=== PATIENT | female | born 1975 | race Caucasian/White ===

== ENCOUNTER 2016-05-16 17:47 | Emergency (ER) | payer MEDICAID ==
[~2016-05-16] VITALS: Ht 162.6 cm; Wt 45.0 kg
[~2016-05-16 17:47] MED LIST: HYDR2.5%T PR; SENN1TAB11 PO
[2016-05-16 17:50] VITALS: BP 127/64; PULSE 85; RESP 15; TEMP 98.1; O2SAT 98
[2016-05-16] MEDS ORDERED: OSEL75 PO (18:22)
--- NOTE | 2016-05-16 18:22 | PD ---
HPI Chief Complaint: Cold / Flu Symptoms Time Seen by Provider: 18:12 Travel History International Travel<30 days: No Contact w/Intl Traveler<30days: No Traveled to known affect area: No History of Present Illness HPI 41-year-old female presents to the emergency Department with sudden onset fever, chills, myalgias, sore throat, cough, generalized malaise. Patient has decreased appetite but no nausea vomiting or diarrhea. Patient's young daughter has the same symptoms since yesterday. Patient states a high temperature 100.5. She has no other specific complaints. She is allergic to Ceclor, Cipro, Lortab, penicillin, Percocet, and sulfa. PFSH Past Medical History ?: Not LMP: 04/25/2016 Social History Alcohol Use: Yes Tobacco Use: Yes Allergies-Medications Reported Meds & Prescriptions Reported Meds & Active Scripts Active Pat-Colace (Senna/Docusate Sodium) 1 Tab Tab 2 Tab PO HS 10 Days Anusol-Hc (Hydrocortisone) 2.5 % Cre 2.5 % [place] BID 10 Days Review of Systems Except as stated in HPI: all other systems reviewed are Neg General / Constitutional: Positive: Fever, Chills Eyes: No: Visual changes HENT: Positive: Headaches, Sore Throat, Rhinitis, Rhinorrhea, Congestion, No: Vertigo, Lightheadedness, Nosebleed, Neck Stiffness, Neck Pain, Ear Discharge, Earache Cardiovascular: No: Chest Pain or Discomfort Respiratory: Positive: Cough, No: Shortness of Breath Gastrointestinal: Positive: Loss of Appetite, No: Nausea, Vomiting, Diarrhea, Abdominal Pain Genitourinary: No: Dysuria Musculoskeletal: Positive: Myalgias, No: Pain Skin: No Rash Neurologic: No: Weakness Psychiatric: No: Depression Endocrine: No: Polydipsia Hematologic/Lymphatic: No: Easy Bruising Physical Exam Narrative GENERAL: Patient appears ill but not septic. SKIN: Warm and dry. Mild pallor. Normal turgor. HEAD: Atraumatic. Normocephalic. EYES: Pupils equal and round. No scleral icterus. No injection or drainage. ENT: No nasal bleeding or discharge. Mucous membranes pink and moist. Mild injection in the posterior pharynx otherwise unremarkable. TMs are clear bilaterally. NECK: Trachea midline. Nontender. CARDIOVASCULAR: Regular rate and rhythm. RESPIRATORY: No accessory muscle use. Clear to auscultation. Breath sounds equal bilaterally. GASTROINTESTINAL: Abdomen soft, non-tender, nondistended. Hepatic and splenic margins not palpable. MUSCULOSKELETAL: Extremities without clubbing, cyanosis, or edema. No obvious deformities. NEUROLOGICAL: Awake and alert. No obvious cranial nerve deficits. Motor grossly within normal limits. Five out of 5 muscle strength in the arms and legs. Normal speech. PSYCHIATRIC: Appropriate mood and affect; insight and judgment normal. Data Data Last Documented VS Vital Signs Date Time Temp Pulse Resp B/P Pulse Ox O2 Delivery O2 Flow Rate FiO2 05/16/16 17:50 98.1 85 15 127/64 98 MDM Medical Decision Making Medical Screen Exam Complete: Yes Emergency Medical Condition: Yes Differential Diagnosis Febrile illness. Myalgias. Viral illness. Influenza. Narrative Course Patient is medically stable at time of exam. I am empirically treating the patient for influenza with Tamiflu 75 mg twice a day for 5 days. Patient's is to continue ibuprofen and Tylenol rest as needed. Work note is given. Patient follow-up with primary care physician or return to emergency Department with worsening symptoms as necessary. Diagnosis Primary Impression: Influenza Patient Instructions: General Instructions, H1N1 Influenza (ED) Departure Forms: Work Release Enter return to work date: May 20, 2016 Additional Instructions: I am empirically treating the patient for influenza with Tamiflu 75 mg twice a day for 5 days. Patient's is to continue ibuprofen and Tylenol rest as needed. Work note is given. Patient follow-up with primary care physician or return to emergency Department with worsening symptoms as necessary. Med/Other Pt SpecificInfo: Prescription(s) given Disposition: 01 DISCHARGE HOME Condition: Stable Barry Dodson May 16, 2016 18:22
== END 2016-05-16 18:40 | disposition home or self-care (01) ==
LOC: NEPB 17:47
DX: J11.1 Influenza due to unidentified influenza virus with other respiratory manifestations (principal); Z72.0 Tobacco use
CPT/HCPCS: 99283

== ENCOUNTER 2017-01-20 20:19 | Observation (INO) | payer MEDICAID ==
[~2017-01-20 20:19] MED LIST changes: -HYDR2.5%T PR; +OSEL75 PO; -SENN1TAB11 PO
[2017-01-20 21:22] VITALS: BP 109/64; PULSE 96; RESP 16; TEMP 99.9; O2SAT 98
[2017-01-20 22:15] VITALS: PULSE 96
[2017-01-20] MEDS ORDERED: SODIUM CHLORIDE 0.9% FLUSH 10 ML FLUSH IV FLUSH PRN (23:45)
[2017-01-20] MEDS ORDERED: ONDANSETRON HCL 4 MG/2 ML VIAL IV PUSH PRN (23:45)
[2017-01-20] MEDS ORDERED: NITROGLYCERIN 0.4 MG SL 25 TABS/BTL SL PRN (23:45)
[2017-01-21] VITALS (9 sets, daily range): BP systolic 93–106; BP diastolic 49–56; PULSE 63–84; RESP 16–20; TEMP 96.5–98.8; O2SAT 98–99
[2017-01-21] MEDS: MORPHINE SULFATE 4 MG/ML INJ IV PUSH PRN ×2 (00:27→06:39)
[2017-01-21] MEDS ORDERED: ASPIRIN 325 MG TAB PO SCH (09:00)
[2017-01-21] MEDS ORDERED: SODIUM CHLORIDE 0.9% FLUSH 10 ML FLUSH IV FLUSH SCH (09:00)
--- NOTE | 2017-01-21 09:13 | HHI.HP ---
HPI Primary Care Physician Karthik Cueto D.O. Chief Complaint Dyspnea History of Present Illness 41-year-old female with history of anxiety and current smoker presents to emergency room for further evaluation of dyspnea and chest pain. Reports one week of respiratory illness accompanied with nonproductive cough, fever, and malaise. Upon awakening yesterday morning felt "as though I was punched in the chest." Proceeded to work, able to complete full shift. Reports history of costochondritis therefore was not overly concerned with chest discomfort. Described as sharp, stabbing pain. Location substernal. No radiation of pain. Duration constant. Precipitating factors relates to a respiratory illness. No known relieving factors. Movement and taking a deep breath makes pain worse. Endorses shallow breathing, because of pain associated with breathing. Initially went to [facility], states [employer] PROGRAM RESIDENT recommended [facility] transport to ED. Declined [facility] instead drove self to [place] [facility]. Continues to have chest pain and dyspnea. Review of Systems General: Fatigue,weakness, and fever x1 week, Current respiratory illness, nonproductive cough. No change in appetite. HEENT: Current CARVAJAL she related to not eating. Slight, intermittent nasal yellow drainage. CV: Continues to have chest pain as stated above. RESP: Continues to feel short of breath and reports swallow breathing due to pain with breating. Nonproductive cough x1 week. No wheeze, no hemoptysis, no history of asthma. GI: No nausea, vomiting, bowel changes, or diarrhea. : No dysuria, urgency, or frequency. EXT: No lower leg edema, no paraesthesias MS: Substernal and upper uptwister tender to touch. Pain made worse with movement. No change in ROM. NEURO: No LOC, motor/sensory deficits PSYCH: History of anxiety, stating anxiety controlled past 7 years. Reporting current anxiety over current situation and admission to hospital. Requesting low dose xanax. No depression or situational stress. SKIN: No rashes, no concerning lesions Past Family Social History Allergies: Coded Allergies: Sulfa (Sulfonamide Antibiotics) (Unverified Allergy, Severe, Confusion, ) acetaminophen (Unverified Allergy, Severe, Itching, 10/18/16) cefaclor (Unverified Allergy, Severe, Itching, 10/18/16) ciprofloxacin (Unverified Allergy, Severe, Itching, 10/18/16) codeine (Verified Allergy, Severe, 01/20/17) hydrocodone (Unverified Allergy, Severe, Itching, 10/18/16) oxycodone (Unverified Allergy, Severe, Itching, 10/18/16) penicillin G (Unverified Allergy, Severe, Anaphylaxis, 10/18/16) Past Medical History Anxiety Past Surgical History Tubal ligation, D&C, left wrist cyst removal Reported Medications Reported Meds & Active Scripts Active No Active Prescriptions or Reported Medications Active Ordered Medications Current Medications Medications (Trade) Dose Ordered Sig/Iraida Route Start Time Stop Time Status Last Admin (NS Flush) 2 ml BID IV FLUSH 01/21/17 09:00 01/21/17 08:46 (NS Flush) 2 ml UNSCH PRN IV FLUSH 01/20/17 23:45 (Morphine Inj) 2 mg Q4H PRN IV PUSH 01/20/17 23:45 01/21/17 06:39 (Zofran Inj) 4 mg Q6H PRN IV PUSH 01/20/17 23:45 (Nitrostat Sl) 0.4 mg Q5M PRN SL 01/20/17 23:45 (Aspirin) 325 mg DAILY PO 01/21/17 09:00 01/21/17 08:45 (Albuterol Neb) 2.5 mg Q6HR NEB NEB 01/21/17 10:00 UNV (Albuterol Neb) 2.5 mg Q2HR NEB PRN NEB 01/21/17 09:15 UNV (Toradol Inj) 30 mg ONCE ONCE IV PUSH 01/21/17 09:15 01/21/17 09:16 UNV (Xanax) 0.25 mg ONCE ONCE PO 01/21/17 09:15 01/21/17 09:16 UNV Family History Noncontributory for early onset cardiovascular disease. Social History No known diabetes, hypertension, or hyperlipidemia. Current smoker 1/2 pack/daily. Denies any alcohol or illegal drug use. Single Mother of 2-year-old daughter. Endorses active lifestyle. Past cardiac testing None Physical Exam Vital Signs Vital Signs Date Time Temp Pulse Resp B/P (MAP) Pulse Ox O2 Delivery O2 Flow Rate FiO2 01/21/17 08:05 98 21 01/21/17 06:43 99/54 (69) 01/21/17 05:06 99/54 (69) 01/21/17 04:48 98.2 79 16 93/54 (67) 98 01/21/17 04:00 66 01/21/17 00:36 98.8 80 19 101/56 (71) 99 01/21/17 00:00 84 01/20/17 22:15 96 01/20/17 21:22 99.9 96 16 109/64 (79) 98 Physical Exam GENERAL: Alert WN, WD, mild distress appears unable to find a comfortable position, attempting not to take deep breaths, pleasant, female HEAD: NC, AT EYES: Sclera clear, conjunctiva without injection, pupils equal and round ENT: Mucous membranes pink and moist, NECK: Supple, no masses, trachea midline CV: RRR, without murmur, rub, gallop, no JVD, S1-S2 no S3-S4. Guarding chest wall during palpation, tender with gentle touch of stethoscope. RESP: Lungs diminished throughout bilateral, difficult to auscultate due to not taking deep breathes. Symmetrical chest rise, nonlabored, able to speak in full sentences, taking shallow breathes due to apparent discomfort with breathing. No crackles, wheeze, or rhonchi. ABD: Soft, NT, ND, no masses, positive bowel tones, flat BACK: Tender to touch of stethoscope during auscultation EXT: Pulses +24, no dependent edema MS: Normal tone 4 extremities, no obvious deformities, full range of motion NEURO: CN II through CN XII grossly intact, motor strength 5/5 PSYCH: A+O 3, pleasant affect, appropriate speech,insight and judgment SKIN: Normal turgor, normal texture, no lesions, no rashes, brisk cap refill, even hair distribution Laboratory Laboratory Tests Test 01/20/17 20:57 Troponin I LESS THAN 0.02 Imaging Chest xray read and interpreted by Radiologist as no acute cardiopulmonary process. Normal examination. Course EKG Normal sinus rhythm, normal axis, no ST or T-segment changes Caprini VTE Risk Assessment Caprini VTE Risk Assessment: No/Low Risk (score <= 1) Caprini Risk Assessment Model Point Value = 1 Point Value = 2 Point Value = 3 Point Value = 5 Age 41-60 Minor surgery BMI > 25 kg/m2 Swollen legs Varicose veins or History of unexplained or recurrent spontaneous Oral contraceptives or hormone replacement Sepsis (< 1 month) Serious lung disease, including pneumonia (< 1 month) Abnormal pulmonary function Acute myocardial infarction Congestive heart failure (< 1 month) History of inflammatory bowel disease Medical patient at bed rest Age 61-74 Arthroscopic surgery Major open surgery (> 45 min) Laparoscopic surgery (> 45 min) Malignancy Confined to bed (> 72 hours) Immobilizing plaster cast Central venous access Age >= 75 History of VTE Family history of VTE Factor V Leiden Prothrombin [id number] Lupus anticoagulant Anticardiolipin antibodies Elevated serum homocysteine Heparin-induced thrombocytopenia Other congenital or acquired thrombophilia Stroke (< 1 month) Elective arthroplasty Hip, pelvis, or leg fracture Acute spinal cord injury (< 1 month) Prophylaxis Regimen Total Risk Factor Score Risk Level Prophylaxis Regimen 0-1 Low Early ambulation 2 Moderate Order ONE of the following: *Sequential Compression Device (SCD) *Heparin 5000 units SQ BID 3-4 Higher Order ONE of the following medications: *Heparin 5000 units SQ TID *Enoxaparin/Lovenox 40 mg SQ daily (WT < 150 kg, CrCl > 30 mL/min) *Enoxaparin/Lovenox 30 mg SQ daily (WT < 150 kg, CrCl > 10-29 mL/min) *Enoxaparin/Lovenox 30 mg SQ BID (WT < 150 kg, CrCl > 30 mL/min) AND/OR *Sequential Compression Device (SCD) 5 or more Highest Order ONE of the following medications: *Heparin 5000 units SQ TID (Preferred with Epidurals) *Enoxaparin/Lovenox 40 mg SQ daily (WT < 150 kg, CrCl > 30 mL/min) *Enoxaparin/Lovenox 30 mg SQ daily (WT < 150 kg, CrCl > 10-29 mL/min) *Enoxaparin/Lovenox 30 mg SQ BID (WT < 150 kg, CrCl > 30 mL/min) AND *Sequential Compression Device (SCD) Assessment and Plan Assessment and Plan #1 Atypical chest pain-admitted to chest pain center. Ruled out with 3 sets of EKGs and cardiac enzymes. Will be seen and evaluated by Dr. Miller Moser. Musculoskeletal chest wall discomfort due to current respiratory illness and frequency of coughing. Toradol 30 mg IV 1 dose. Will reassess after Toradol given. Further cardiac testing unlikely this is been discussed with patient. Patient agreeable to plan of care. #2 Bronchitis- albuterol RT treatments every 6 hours scheduled and every 2 when necessary, first dose now, discussed plan of care with RN. Discussed Toradol mechanism of action. Consider home going [facility] upon discharge. #3 Anxiety-Xanax 0.25mg po x1 dose. Reports tolerance to Xanax in the past. #4 Tobacco use-strongly encouraged and stressed the importance of tobacco cessation. Instructed her to quit smoking. Daniela Hanna Jan 21, 2017 09:13
[2017-01-21] MEDS ORDERED: KETOROLAC TROMETHAMINE 30 MG/ML (IVP) VIAL IV PUSH ONE (09:15)
[2017-01-21] MEDS ORDERED: ALPRAZolam 0.25 MG TAB PO ONE (09:15)
[2017-01-21] MEDS ORDERED: RESP: ALBUTEROL 2.5 MG/3 ML NEB (PRN) NEB (09:15)
[2017-01-21] MEDS ORDERED: RESP: ALBUTEROL 2.5 MG/3 ML NEB (SCH) NEB (10:00)
--- NOTE | 2017-01-21 11:37 | HHI.DCPOC ---
Discharge Care Plan Diagnosis: (1) Atypical chest pain (2) Acute bronchitis (3) Musculoskeletal chest pain (4) Tobacco abuse Goals to Promote Your Health * To prevent worsening of your condition and complications * To maintain your health at the optimal level Directions to Meet Your Goals Take your medications as prescribed Follow your dietary instruction Follow activity as directed Keep your appointments as scheduled Take your immunizations and boosters as scheduled If your symptoms worsen call your PCP, if no PCP go to Urgent Care Center or Emergency Room Smoking is Dangerous to Your Health. Avoid second hand smoke Call the 24-hour hour crisis hotline for domestic abuse at Daniela Hanna Jan 21, 2017 11:37
[2017-01-21] MEDS ORDERED: ZITHTAB PO (11:39)
--- NOTE | 2017-01-21 12:03 | EKG ---
Date Performed: 01/20/2017 Time Performed: 22:04:38 PTAGE: 41 years EKG: Sinus rhythm POSSIBLE RIGHT VENTRICULAR CONDUCTION DELAY BORDERLINE ECG NO PREVIOUS TRACING DOCTOR: Miller Moser Interpretating Date/Time 01/21/2017 12:01:57
--- NOTE | 2017-01-21 12:11 | EKG ---
Date Performed: 01/21/2017 Time Performed: 00:33:15 PTAGE: 41 years EKG: Sinus rhythm POSSIBLE RIGHT VENTRICULAR CONDUCTION DELAY BORDERLINE ECG PREVIOUS TRACING : 01/20/2017 22.04 Since previous tracing, no significant change noted DOCTOR: Miller Moser Interpretating Date/Time 01/21/2017 12:09:03
== END 2017-01-21 15:02 | disposition home or self-care (01) ==
LOC: NEDDLT 20:19 → NEPHCDU 20:21
DX: R07.89 Other chest pain (principal); J20.9 Acute bronchitis, unspecified; F41.9 Anxiety disorder, unspecified; R94.31 Abnormal electrocardiogram [ECG] [EKG]; F17.210 Nicotine dependence, cigarettes, uncomplicated
CPT/HCPCS: 71010; 80053; 84484; 84702; 85025; 85379; 85610; 85730; 93005; 96361; 96374; 96375; 99285; G0378; J1885; J2270; J7040; J2405